=== PATIENT | male | born 1975 | race Caucasian/White ===

== ENCOUNTER 2017-11-02 10:21 | Emergency (ER) | payer OTHER ==
[~2017-11-02] VITALS: Ht 162.5 cm; Wt 58.5 kg
[~2017-11-02 10:21] MED LIST: BACTRIM DS 8001 TA1 PO; BENTYL10 MG PO; CATAFLAM50 MG PO; DARVOCET N 1001 TAB PO; HYDROCODONE BIT1 T11 PO; IMODIUM2 MG PO; NORTRIPTYLINE H10 MG PO; SEPTRA DS 800 M1 TAB PO; ZITHROMAX Z PA250 MG PO
[2017-11-02 10:30] VITALS: BP 98/70
[2017-11-02] MEDS ORDERED: PREDNISONE50 MG PO (10:53)
[2017-11-02] MEDS ORDERED: NAPROSYN500 MG PO (10:53)
[2017-11-02] MEDS ORDERED: CYCLOBENZAPRINE10 MG PO (10:53)
== END 2017-11-02 10:58 | disposition home or self-care (01) ==
LOC: ED 10:21
DX: M54.30 Sciatica, unspecified side (principal); F17.200 Nicotine dependence, unspecified, uncomplicated; R20.0 Anesthesia of skin; Z88.0 Allergy status to penicillin

== ENCOUNTER → 2018-03-31 | Outpatient (CLI) | payer OTHER ==
[~2018-03-31] MED LIST changes: +CYCLOBENZAPRINE10 MG PO; +NAPROSYN500 MG PO; +PREDNISONE50 MG PO
== END | disposition home or self-care (01) ==
LOC: RAD 09:38
DX: R29.898 Other symptoms and signs involving the musculoskeletal system (principal)

== ENCOUNTER → 2018-10-01 | Outpatient (CLI) | payer OTHER | END | disposition home or self-care (01) | LOC: RAD 15:18 | DX: M75.101 Unspecified rotator cuff tear or rupture of right shoulder, not specified as traumatic (principal); M25.551 Pain in right hip ==

== ENCOUNTER 2023-02-19 11:07 | Emergency (ER) | payer OTHER ==
[~2023-02-19] VITALS: Wt 59.0 kg
[2023-02-19 11:24] VITALS: BP 134/69
== END 2023-02-19 12:44 | disposition home or self-care (01) ==
LOC: ED 11:07
DX: F07.81 Postconcussional syndrome (principal); R11.0 Nausea; Z88.0 Allergy status to penicillin; Z98.890 Other specified postprocedural states

== ENCOUNTER → 2024-04-06 | Outpatient (CLI) | payer OTHER ==
[2024-04-06 10:50] LABS: BASO % 0.6 % (0.0-1.0); EOS # 0.3 10*3/uL (0.0-0.4); EOS % 4.3 % (1.0-4.0); HEMATOCRIT 45.1 % (42.0-52.0); LYMPH # 1.8 10*3/uL (1.3-4.4); LYMPH % 28.2 % (27.0-41.0); MEAN CELL VOLUME 85.7 fl (80.0-94.0); MEAN CORPUSCULAR HGB 30.4 pg (27.0-31.0); MEAN CORPUSCULAR HGB CONC 35.5 g/dl (33.0-37.0); MEAN PLATELET VOLUME 10.9 fl (9.6-12.3); MONO # 0.5 10*3/uL (0.1-1.0); MONO % 7.7 % (3.0-9.0); NEUT # 3.7 10*3/uL (2.3-7.9); NEUT % 58.6 % (47.0-73.0); PLATELET COUNT AUTOMATED 186 10*3/uL (130-400); RED BLOOD COUNT 5.26 10*6/uL (4.50-5.90); RED CELL DISTRI WIDTH 12.7 % (0-14.5); WHITE BLOOD COUNT 6.3 10*3/uL (4.8-10.8)
[2024-04-06 11:21] LABS: ALKALINE PHOSPHATASE 38 U/L (46-116); BUN 14 mg/dl (9-23); CHLORIDE 108 mmol/L (98-107); FREE T4 1.34 ng/dl (0.89-1.76); POTASSIUM 3.9 mmol/L (3.4-5.1); SGPT/ALT 14 U/L (5-49); TOTAL PROTEIN 6.9 gm/dL (6.0-8.0)
[2024-04-06 11:23] LABS: VITAMIN D, 25-HYDROXY 40.4 ng/mL (30-100)
== END | disposition home or self-care (01) ==
LOC: MRI 09:00 → LAB 09:28
PROVIDERS: ATTEND Internal Medicine
DX: G31.84 Mild cognitive impairment of uncertain or unknown etiology (principal); R26.89 Other abnormalities of gait and mobility; R42 Dizziness and giddiness; R51.9 Headache, unspecified